=== PATIENT | male | born 1960 | race Caucasian/White ===

== ENCOUNTER 2020-11-11 14:09 | Emergency (ER) | payer BC ==
[~2020-11-11] VITALS: Ht 180.3 cm; Wt 104.5 kg
[2020-11-11 15:07] VITALS: BP 118/76
== END 2020-11-11 15:22 | disposition home or self-care (01) ==
LOC: ER 14:11
DX: R60.0 Localized edema (principal); I10 Essential (primary) hypertension; F17.200 Nicotine dependence, unspecified, uncomplicated; Z98.890 Other specified postprocedural states
CPT/HCPCS: 99281